=== PATIENT | female | born 1995 | race Caucasian/White ===

== ENCOUNTER → 2017-04-04 | Outpatient (CLI) | payer BC | END | disposition home or self-care (01) | LOC: C.PAPS 08:47 | PROVIDERS: ATTEND Physician Assistant | DX: Z01.419 Encounter for gynecological examination (general) (routine) without abnormal findings (principal) ==

== ENCOUNTER → 2017-06-10 | Outpatient (CLI) | payer BC ==
[2017-06-10 17:39] LABS: URINE APPEARANCE TURBID (CLEAR); URINE BILIRUBIN NEG (NEG); URINE COLOR DK YELLOW; URINE EPITHELIAL CELL AUTO >30 /lpf (0-5); URINE NITRITE NEG (NEG); URINE PH 5.5 (4.5-7.5); URINE SPECIFIC GRAVITY 1.033 (1.000-1.030); UROBILINOGEN NEG (NEG)
[2017-06-10 17:43] LABS: MANUAL MICROSCOPIC REQUIRED? NO; REVIEW REQ? YES
[2017-06-14 01:02] LABS: CHLAMYDIA TRACH RNA*** NOT DETECTED (NOT DETECTED); GC (NEIS GONORRHOEAE)RNA** NOT DETECTED (NOT DETECTED)
== END | disposition home or self-care (01) ==
LOC: C.LABSPEC 17:23
PROVIDERS: ATTEND Obstetrics & Gynecology
DX: Z34.00 Encounter for supervision of normal first pregnancy, unspecified trimester (principal)

== ENCOUNTER → 2017-06-17 | Outpatient (CLI) | payer BC ==
[2017-06-17 16:31] LABS: BASO % 0.2 %; BASO ABS # 0.02 K/uL (0-0.2); COMPLETE YES; EOS % 2.6 %; HEMATOCRIT 38.2 % (37-47); IG% 0.1 %; LYMPH % 10.6 %; LYMPH ABS # 1.15 K/uL (1.2-3.4); MEAN CELL VOLUME 86.2 fL (80-100); MEAN CORPUSCULAR HEMOGLOBIN 29.6 pg (25-34); MEAN CORPUSCULAR HGB CONC 34.3 g/dl (32-36); MEAN PLATELET VOLUME 10.5 fL (7.4-10.4); NEUT % 80.5 %; PLATELET COUNT 246 K/uL (130-400); RED BLOOD COUNT 4.43 M/uL (4.2-5.4); WHITE BLOOD COUNT 10.81 K/uL (4.8-10.8)
[2017-06-17 16:33] LABS: MANUAL MICROSCOPIC REQUIRED? NO; REVIEW REQ? NO; URINE APPEARANCE CLOUDY (CLEAR); URINE BILIRUBIN NEG (NEG); URINE COLOR YELLOW; URINE EPITHELIAL CELL AUTO 20-30 /lpf (0-5); URINE NITRITE NEG (NEG); URINE PH 6.5 (4.5-7.5); URINE SPECIFIC GRAVITY 1.023 (1.000-1.030); UROBILINOGEN NEG (NEG)
== END | disposition home or self-care (01) ==
LOC: C.LAB 15:34
PROVIDERS: ATTEND Obstetrics & Gynecology
DX: Z34.00 Encounter for supervision of normal first pregnancy, unspecified trimester (principal); R39.9 Unspecified symptoms and signs involving the genitourinary system

== ENCOUNTER → 2017-08-12 | Outpatient (CLI) | payer BC ==
[2017-08-12 19:04] LABS: GTGD 50 Grams
== END | disposition home or self-care (01) ==
LOC: C.LAB1850 16:21
PROVIDERS: ATTEND Internal Medicine Rheumatology
DX: O26.841 Uterine size-date discrepancy, first trimester (principal)

== ENCOUNTER → 2017-11-03 | Outpatient (CLI) | payer BC ==
[2017-11-03 17:03] LABS: HEMATOCRIT 30.3 % (37-47)
[2017-11-03 18:32] LABS: URINE BILIRUBIN NEG (NEG); URINE COLOR YELLOW; URINE EPITHELIAL CELL AUTO 20-30 /lpf (0-5); URINE NITRITE NEG (NEG); URINE SPECIFIC GRAVITY 1.014 (1.000-1.030); UROBILINOGEN NEG (NEG)
[2017-11-03 18:33] LABS: MANUAL MICROSCOPIC REQUIRED? NO; REVIEW REQ? NO
[2017-11-03 18:38] LABS: GTGD 50 Grams
== END | disposition home or self-care (01) ==
LOC: C.LAB 16:06
PROVIDERS: ATTEND Obstetrics & Gynecology
DX: Z34.03 Encounter for supervision of normal first pregnancy, third trimester (principal); Z3A.28 28 weeks gestation of pregnancy

== ENCOUNTER → 2017-12-30 | Outpatient (CLI) | payer BC | END | disposition home or self-care (01) | LOC: C.LABSPEC 17:27 | PROVIDERS: ATTEND Obstetrics & Gynecology | DX: Z34.03 Encounter for supervision of normal first pregnancy, third trimester (principal); Z3A.00 Weeks of gestation of pregnancy not specified ==

== ENCOUNTER 2019-01-04 10:34 | Observation (INO) ==
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
[2019-01-04] MEDS ORDERED: ACETAMINOPHEN 500 MG TAB PO PRN (12:24)
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
== END 2019-01-05 09:36 | disposition home or self-care (01) ==
LOC: OPB 10:34 → 4S1 10:34

== ENCOUNTER 2019-03-24 17:47 | Inpatient (IN) ==
[2019-03-24] MEDS ORDERED: OXYTOCIN 30 UNITS/500 ML BAG IV PRN ×2 (17:54→19:08)
[2019-03-24] MEDS ORDERED: LACTATED RINGER'S 1,000 ML IV PRN (17:54)
[2019-03-24] MEDS ORDERED: LACTATED RINGER'S 1,000 ML IV SCH (18:00)
[2019-03-24] MEDS ORDERED: OXYTOCIN 30 UNITS/500ML NSS ONE (18:10)
[2019-03-24 18:18] LABS: Hematocrit (blood only) 35.4 % (37-47); Mean Corpuscular Volume 79.4 fL (80-100); Platelet Count 241 K/uL (130-400); RDW Coefficient of Variation 13.6 % (11.5-14.5); Red Blood Count 4.46 M/uL (4.2-5.4); White Blood Count 12.34 K/uL (4.8-10.8)
[2019-03-24 18:26] LABS: Mean Corpuscular Hgb Conc 33.9 g/dL (32-36)
[2019-03-24] MEDS ORDERED: SILVER NITR/POTASSIUM NITRATE APPLICATOR ONE (18:28)
[2019-03-24] MEDS ORDERED: HYDROCORTISONE ACETATE 25 MG SUPP PR PRN (19:08)
[2019-03-24] MEDS ORDERED: OXYCODONE/ACETAMINOPHEN 5mg/325mg TAB PO PRN (19:08)
[2019-03-24] MEDS ORDERED: SUPERCREAM 0.870% 15 GM JAR EXT PRN (19:08)
[2019-03-24] MEDS ORDERED: ACETAMINOPHEN 325 MG TAB PO PRN (19:08)
[2019-03-24] MEDS ORDERED: BENZOCAINE 20% AER SPR 82.5 GM CAN EXT PRN (19:08)
[2019-03-24] MEDS ORDERED: BISACODYL 10 MG SUPP PR PRN (19:08)
[2019-03-24] MEDS ORDERED: DIPHTHERIA/TETANUS/PERTUSSIS 0.5 ML SYR/VIAL IM ONE (19:08)
--- NOTE | 2019-03-24 21:00 | Delivery Summary ---
DATE OF OPERATION: 03/24/2019 HISTORY: The patient is a 23-year-old 2, para 1-0-0-1 white female, EDC of 03/27/2019 with a history of fast labor and delivery last , presented with contractions every 4-6 minutes for several hours prior to arriving in Labor And Delivery. She was 7-8 cm upon arrival, she went rapidly to 9 cm and membranes were ruptured for clear fluid. She then pushed effectively over intact perineum for delivery of a viable female infant. The rest of the infant delivered easily and placed on the mother's abdomen for further attention. The infant was vigorous and moving all 4 limbs. After 30 seconds, the cord was clamped and cut. The placenta was then expressed intact with a 3-vessel cord. A second degree left labial laceration was repaired with 3-0 chromic in the usual fashion. Estimated blood loss was 250 mL. Mother and were doing well after delivery. bleeding was controlled with dilute Pitocin. I attest to the content of the Intraoperative Record and any orders documented therein. Any exception s are noted below.
[2019-03-25] MEDS: IBUPROFEN 600 MG TAB PO PRN ×5 (00:03→20:44)
[2019-03-25 07:20] LABS: Hematocrit (blood only) 32.4 % (37-47); Hemoglobin 10.5 g/dL (12.0-16.0); Mean Corpuscular Hgb Conc 32.4 g/dL (32-36); Mean Corpuscular Volume 79.4 fL (80-100); Mean Platelet Volume 11.3 fL (7.4-10.4); Platelet Count 214 K/uL (130-400); RDW Coefficient of Variation 13.6 % (11.5-14.5); Red Blood Count 4.08 M/uL (4.2-5.4); White Blood Count 12.34 K/uL (4.8-10.8)
[2019-03-25] MEDS ORDERED: PRENATAL VITAMIN 1 TAB PO SCH (09:00)
[2019-03-25] MEDS: DOCUSATE SODIUM 100 MG CAP PO SCH ×2 (09:03→20:43)
--- NOTE | 2019-03-25 09:57 | Obstetrical Progress Note ---
Date of Service March 25, 2019 Assessment & Plan (1) care following vaginal delivery: satisfactory course continue current care plan Present on Admission?: No Day #:: 1 Subjective Ambulation: ambulating normally Voiding: no voiding problems Passing Gas:: Yes Diet Tolerance:: regular diet Lochia:: Small Feeding Type:: breast feeding Current Pain Level(1-10): 3 Review of Systems All systems reviewed & are unremarkable except as noted in HPI & below Physical Exam Vital Signs (Past 24 Hours) Last Vital Signs Temp 97.9 F 03/25/19 03:25 Pulse 62 03/25/19 03:25 Resp 18 03/25/19 03:25 BP 107/71 03/25/19 03:25 Pulse Ox 98 03/24/19 22:00 Constitutional WD/WN, vitals as above Gastrointestinal (Abdomen) normal bowel sounds, soft, nontender, no hepatosplenomegaly Musculoskeletal no calf tenderness Genitourinary OB Exam Abdomen: + fundal height Fundus: + firm and + relation to umbilicus (1 below U)
[2019-03-25] MEDS ORDERED: BISACODYL 5 MG TABEC PO SCH (20:00)
--- OUTSIDE RECORDS SUMMARY | 2019-03-26 22:39 | External Medical Summary | Continuity of Care Document ---
:1995 Author Name Mikey Bar, Provider Address Unavailable Unavailable , Care Team Providers Name Role Phone Griselda Coreas M.D. Unavailable [email or web address] PCP, UNKNOWN Unavailable Unavailable Tania Wheeler Unavailable [email or web address] Unavailable Unavailable Unavailable Problems Frequent headaches (784.0) (R51) External hemorrhoid (455.3) (K64.4) H/O rapid labor (V13.29) (Z87.59) Short interval between pregnancies affec ting , antepartum (V23.89) (O09.899) Encounter for supervision of normal preg araseli in multigravida in third trimester (V22.1) (Z34.83) Acute upper respiratory infection (465.9) (J06.9) Allergies and Adverse Reactions No Known Drug Allergies (Allergy) Pollen (Allergy) Medications Fiber 625 MG Oral Tablet Start: 28-Feb-20 19 Refills: 0 TABS Refills: 0 Iron TABS Refills: 0 Procedures Non-stress test Date: 23-Mar-2019 Immunizations Tdap (Adacel) On: 17-Nov-2017 16:57 Lot #: [id number], [employer]OFI PASTEUR Tdap (Adacel) On: 15-Jan-2019 16:36 Lot #: [id number], [employer]OFI PASTEUR Family History Grandmother Family history of malignant neoplasm of uterus (V16.49) (Z80 .49) Status: Active Social History - Smoking Status Never smoker Interventions Follow-ups/ReferralsFollow-up visit in 1 week; Done: 23 Mar 2019 Plan of Treatment Planned Observations Non-stress test Start: 27-Mar-2019 Intent Results Group B Strep/CONNELLY 01-Mar-2019 0:00 GRP B BETA STREP CULTURE - CONNELLY ORDERED P ROCEDURE : GRP B Beta Strep Culture -CONNELLY; Speciment : V aginal/Rectal Source of Specimen: Vaginal/ Rectal Group B St rep Culture : No Group B Strep isolated Vital Signs 23-Mar-2019 15:45 Systolic 110 mm[Hg] Diastolic 80 mm[Hg] Weight 161 lb Height 65 in BSA Calculated 1.8 m2 BMI Calculated 26.79 kg/m2 13-Mar-2019 16:05 Systolic 110 mm[Hg] Diastolic 78 mm[Hg] Weight 160.2 lb Height 65 in BSA Calculated 1.8 m2 BMI Calculated 26.66 kg/m2 01-Mar-2019 14:30 Systolic 104 mm[Hg] Diastolic 66 mm[Hg] Weight 155.0 lb Height 65 in BSA Calculated 1.78 m2 BMI Calculated 25.79 kg/m2 27-Feb-2019 15:54 Systolic 90 mm[Hg] Comments: Location: RUE; Position: Sitting Diastolic 64 mm[Hg] Comments: Location: RUE; Position: Sitting Weight 157.4 lb Height 65 in BSA Calculated 1.79 m2 BMI Calculated 26.19 kg/m2 Respiration 15 /min O2 Saturation 98 % Comments: Source: Heart Rate 82 /min Temperature 97.5 f Comments: Method: Or al Encounters Appointment; Griselda Coreas M.D. 23-Mar-2019 15:40 Encounter Diagnosis: Problem not documented Appointment; Ani Goetz M.D. 22-Mar-2019 15:20 Encounter Diagnosis: Problem not documented Appointment; Elizabeth Guzman M.D. 13-Mar-2019 16:00 Encounter Diagnosis: Problem not documented Appointment; Bunny Sheikh M.D. 08-Mar-2019 15:20 Encounter Diagnosis: Problem not documented Appointment; Tejas Bates M.D. 01-Mar-2019 14:30 Encounter Diagnosis: Problem not documented Appointment; Michelle Green CRNP 27-Feb-2019 15:40 Encounter Diagnosis: Problem not documented Appointment; Sarah Carr M.D. 15-Feb-2019 15:10 Encounter Diagnosis: Problem not documented Appointment; Tejas Bates M.D. 01-Feb-2019 15:10 Encounter Diagnosis: Problem not documented Appointment; Jennifer Montilla M.D. 19-Dec-2018 14:20 Encounter Diagnosis: Problem not documented Appointment; Ani Goetz M.D. 10-Nov-2018 11:50 Encounter Diagnosis: Problem not documented Appointment; OBGWEND[facility]YN SC2, Ultrasound 10-Nov-2018 11:00 Encounter Diagnosis: Problem not documented Appointment; Kat Reyes DO 13-Oct-2018 13:40 Encounter Diagnosis: Problem not documented Appointment; Griselda Coreas M.D. 22-Sep-2018 13:30 Encounter Diagnosis: Problem not documented Appointment; OB SC1, Procedure Rm 25-Aug-2018 14:40 Encounter Diagnosis: Problem not documented Appointment; Jennifer Montilla M.D. 25-Aug-2018 14:40 Encounter Diagnosis: Problem not documented Appointment; OB SC1, Nursing Station 18-Aug-2018 10:45 Encounter Diagnosis: Problem not documented Appointment; Elizabeth Guzman M.D. 01-Mar-2018 14:30 Encounter Diagnosis: Problem not documented Appointment; Jennifer Montilla M.D. 13-Jan-2018 13:50 Encounter Diagnosis: Problem not documented Appointment; Ani Goetz M.D. 06-Jan-2018 11:40 Encounter Diagnosis: Problem not documented Appointment; Griselda Coreas M.D. 30-Dec-2017 16:20 Encounter Diagnosis: Problem not documented Appointment; Jennifer Montilla M.D. 29-Dec-2017 16:00 Encounter Diagnosis: Problem not documented Appointment; Tania Borrego CRNP 22-Dec-2017 14:20 Encounter Diagnosis: Problem not documented Appointment; Elizabeth Guzman M.D. 14-Dec-2017 15:50 Encounter Diagnosis: Problem not documented Appointment; Kat Reyes DO 30-Nov-2017 16:30 Encounter Diagnosis: Problem not documented Appointment; Jennifer Montilla M.D. 17-Nov-2017 16:30 Encounter Diagnosis: Problem not documented Appointment; Ani Goetz M.D. 03-Nov-2017 15:20 Encounter Diagnosis: Problem not documented Appointment; Jennifer Montilla M.D. 07-Oct-2017 13:50 Encounter Diagnosis: Problem not documented Appointment; Elizabeth Guzman M.D. 09-Sep-2017 14:20 Encounter Diagnosis: Problem not documented Appointment; OBGYN SC1, Ultrasound 09-Sep-2017 13:15 Encounter Diagnosis: Problem not documented Appointment; Ani Goetz M.D. 12-Aug-2017 14:30 Encounter Diagnosis: Problem not documented Appointment; Kat Reyes, 15-Jul-2017 14:10 Encounter Diagnosis: Problem not documented Appointment; Kat Reyes DO 15-Jul-2017 13:30 Encounter Diagnosis: Problem not documented Appointment; OBGYN SC2, Ultrasound 17-Jun-2017 14:00 Encounter Diagnosis: Problem not documented Appointment; OB SC1, Procedure Rm 10-Jun-2017 14:40 Encounter Diagnosis: Problem not documented Appointment; Jennifer Montilla M.D. 10-Jun-2017 14:40 Encounter Diagnosis: Problem not documented Appointment; OB SC1, Nursing Station 03-Jun-2017 9:45 Encounter Diagnosis: Problem not documented Appointment; Suzie Ruiz PA-C 04-Apr-2017 13:30 Encounter Diagnosis: Problem not documented
--- NOTE | 2019-03-27 07:23 | Coding Query ---
CODING QUERY To promote full compliance with coding requirements relating to patient care, provider participation is requested in all cases of bit gatherer uncertainty. Please assist us with the question(s) below: Coding Question(s): PLEASE INDICATE THE PATIENT'S LENGTH OF GESTATION IN WEEKS AT TIME OF ADMISSION. Physician's Response(s): 38 weeks Thank you Yolanda Raymundo Principal Diagnosis: "that condition established after study, to be chiefly responsible for occasioning the admission of the patient to the hospital for care." Co-Existing Principal Diagnosis: "when two or more diagnoses equally meet the criteria for principal diagnosis as determined by the circumstances of admission, diagnostic work up, and/or therapy provided, and the Alphabetic Index, Tabular List, or another coding guideline does not provide sequencing direction, any one of the diagnoses may be sequenced first." "When the physician has documented what appears to be a current diagnosis in the body of the record, but has not included the diagnosis in the final diagnostic statement, the physician should be asked whether the diagnosis should be added." (Source Coding [facility] 2 QTR90. p3-4) TERESA
== END 2019-03-25 21:45 | disposition home or self-care (01) | DRG 807 ==
LOC: OPB 17:47 → 4S1 17:50 → 4S2 22:00